=== PATIENT | male | born 1955 | race Caucasian/White ===

== ENCOUNTER 2018-04-26 11:44 | Emergency (ER) | payer OTHER ==
[~2018-04-26] VITALS: Ht 175.3 cm; Wt 92.5 kg
[2018-04-26 11:53] VITALS: Ht 175.3 cm; Wt 92.5 kg
[2018-04-26 12:24] VITALS: BP 147/95
== END 2018-04-26 12:24 | disposition home or self-care (01) ==
LOC: ED 11:44
DX: H02.843 Edema of right eye, unspecified eyelid (principal); H57.8 Other specified disorders of eye and adnexa; L53.9 Erythematous condition, unspecified; R21 Rash and other nonspecific skin eruption; H53.8 Other visual disturbances